=== PATIENT | female | born 1955 | race Caucasian/White ===

== ENCOUNTER 2024-09-01 19:15 | Emergency (ER) | payer OTHER, MEDICARE, MEDICAID ==
[~2024-09-01] VITALS: Ht 160 cm; Wt 76.2 kg
[2024-09-01] MEDS ORDERED: Acetaminophen/Hydrocodone 5 MG/325 MG TABLET PO ONE (21:20)
[2024-09-01] MEDS ORDERED: Ondansetron Hydrochloride 4 MG TAB SL ONE (21:20)
== END 2024-09-01 22:38 | disposition home or self-care (01) ==
LOC: ED 19:15
DX: S92.332A Displaced fracture of third metatarsal bone, left foot, initial encounter for closed fracture (principal); S92.352A Displaced fracture of fifth metatarsal bone, left foot, initial encounter for closed fracture; S82.492A Other fracture of shaft of left fibula, initial encounter for closed fracture; R07.89 Other chest pain; K21.9 Gastro-esophageal reflux disease without esophagitis; V04.99XA Pedestrian with other conveyance injured in collision with heavy transport vehicle or bus, unspecified whether traffic or nontraffic accident, initial encounter; Y93.89 Activity, other specified; Y92.410 Unspecified street and highway as the place of occurrence of the external cause; Y99.8 Other external cause status